=== PATIENT | male | born 1965 | race Two or more races ===

== ENCOUNTER 2022-03-19 08:59 | Outpatient (REF) | payer OTHER, SELFPAY ==
[2022-03-19 10:12] LABS: Estimated Average Glucose 255 mg/dL; Hemoglobin A1c % 10.5 %
== END 2022-03-19 09:00 | disposition home or self-care (01) ==
LOC: HO.LAB 08:59
PROVIDERS: PCP Internal Medicine; Visit Provider Surgery
DX: E11.9 Type 2 diabetes mellitus without complications (principal)
CPT/HCPCS: 36415; 83036

== ENCOUNTER 2022-05-15 07:37 | Outpatient (REF) | payer OTHER, SELFPAY ==
[2022-05-15 09:04] LABS: Alanine Aminotransferase 24 U/L (0-40); Albumin Level 4.5 g/dL (3.5-5.0); Alkaline Phosphatase 107 U/L (39-117); Anion Gap 16 (12-20); Aspartate Amino Transferase 18 U/L (5-37); Bilirubin Direct < 0.2 mg/dL (0.0-0.5); Bilirubin Total 0.4 mg/dL (0.0-1.0); Blood Urea Nitrogen 20 mg/dL (9-16); Calcium 9.4 mg/dL (8.4-10.2); Carbon Dioxide 26 mmol/L (22-29); Chloride 100 mmol/L (96-108); Cholesterol 185 mg/dL; Estimated Glomerular Filt Rate > 60; Glucose Random 238 mg/dL (60-115); HDL Cholesterol 32 mg/dL; LDL Cholesterol Calculated 128 mg/dl; Sodium 137 mmol/L (135-145); Total Protein 7.3 g/dL (6.5-8.0); Triglycerides 127 mg/dL
[2022-05-15 09:04] LABS: Creatinine Urine 88.47 mg/dL; Microalbum/Creatinine Ratio Ur 85.9 ug/mg cr
[2022-05-15 09:24] LABS: Thyroid Stimulating Hormone 2.64 uIU/mL (0.32-4.0)
[2022-05-23 16:23] LABS: Testosterone, Free 77.7 pg/mL (35.0-155.0); Testosterone, Total 353 ng/dL (250-1100)
== END 2022-05-15 07:38 | disposition home or self-care (01) ==
LOC: HO.LAB 07:37
PROVIDERS: PCP Internal Medicine; Visit Provider Internal Medicine
DX: Z12.5 Encounter for screening for malignant neoplasm of prostate (principal); I10 Essential (primary) hypertension; E11.9 Type 2 diabetes mellitus without complications; N52.9 Male erectile dysfunction, unspecified
CPT/HCPCS: 36415; 80048; 80061; 80076; 82043; 84153; 84402; 84403; 84443

== ENCOUNTER 2023-01-29 16:28 | Emergency (ER) | payer OTHER, SELFPAY ==
--- NOTE | 2023-01-29 | ECG_ITS ---
Test Reason : CHEST PAIN Blood Pressure : / mmHG Vent. Rate : 083 BPM Atrial Rate : 083 BPM P-R Int : 172 ms QRS Dur : 082 ms QT Int : 324 ms P-R-T Axes : 027 009 003 degrees QTc Int : 380 ms Normal sinus rhythm Minimal voltage criteria for LVH, may be normal variant ( R in aVL ) Abnormal ECG When compared with ECG of 11-NOV-2016 21:24, Premature ventricular complexes are no longer Present Referred By: Generic ED Physician Electronically Signed By:KILEY SIMON MD
[2023-01-29 16:52] VITALS: BP 176/100; PULSE 92; RESP 16; TEMP 37.2; O2SAT 98; BMI 27.2
--- NOTE | 2023-01-29 16:52 | ED.CHESTPAIN ---
HPI - Chest Pain General Chief Complaint: Arrhythmia/Palpitations Stated Complaint: chest pain Time Seen by Provider: 01/29/23 17:06 Source: patient Mode of arrival: ambulatory Limitations: no limitations History of Present Illness HPI narrative: Patient history of hypertension diabetes TIA is on aspirin no known coronary artery disease comes here for fluttering feeling the heart since yesterday 20:00 lasting only for few seconds no shortness of breath no dizziness syncope episode no chest pain patient drink lot of coffee and working too many hours has poor sleep denies any stress or anxiety Related Data Allergies Allergy/AdvReac Type Severity Reaction Status Date / Time No Known Allergies Allergy Unverified 12/20/19 18:09 [No Known Allergies*] Review of Systems Review of Systems: Yes all other systems are reviewed and are negative [facility] Social History Social History Smoked in Last 30 Days: No Advance Directives: No Advance Directives Information Provided: Yes Physical Exam Vital Signs: Vital Signs: Last Vital Signs Temp 99 F 01/29/23 19:29 Pulse 82 01/29/23 19:29 Resp 16 01/29/23 19:29 BP 142/90 H 01/29/23 19:29 Pulse Ox 98 01/29/23 19:29 O2 Del Method Room Air 01/29/23 19:29 BMI result Body Mass Index 27.2 Appearance: Alert. Oriented X3. No acute distress. Eyes: PERRLA, No Nystagmus ENT: Pharynx normal. Oral Mucosa moist Neck: Normal inspection. Neck supple. CVS: Normal heart rate and rhythm. Pulses normal. Respiratory: No respiratory distress. Equal air entry bilateral, no wheezing/rales/rhonchi Abdomen: Soft and nontender. Bowel sounds are present, no mass palpable, no CVA tenderness Skin: Skin warm and dry. Normal skin color. Normal skin turgor. Extremities: No lower extremity edema. No calf tenderness Neuro: Oriented X 3. No motor deficit. No sensory deficit.No cerebellar signs , cranial nerves II-XII intact Course Course Course Narrative: This is an RME: Additional HPI, ROS, PE not included below will be deferred to primary provider. Patient is a 57-year-old male who presents emergency department for evaluation of left/mid anterior chest discomfort described as ?zinging sensation? with sudden onset yesterday evening at approximately 20:00 lasting a few seconds before self-resolving occurring every 5-10 minutes since then. Denies headache, dizziness, lightheadedness, neck pain, shortness of difficulty breathing, nausea, vomiting, abdominal pain, numbness or tingling of extremities. Plan: Labs, EKG, Medical Decision Making Medical Decision Making [facility] Narrative: Patient with history of increased caffeine intake with episodes of palpitations lasting only few seconds during stay in the ER no event was noticed likely patient has premature atrial complex/SVT advised to decrease caffeine intake Differential Diagnosis Differential Diagnoses: The differential diagnosis associated with the presentation includes PAC/PVC/atrial fibrillation/atrial flutter/SVT Lab Data [facility] Lab Attestation statement: I reviewed the patient's lab results. 01/29/23 17:05 01/29/23 17:05 Labs: Lab Results 01/29/23 01/29/23 Range/Units 17:05 17:07 WBC 9.3 (4.8-10.8) X10*3/uL RBC 5.41 (4.60-5.80) X10*6/uL Hgb 15.1 (14.0-18.0) g/dl Hct 45.2 (42.0-52.0) % MCV 83.5 (80.0-98.0) fL MCH 27.9 (27.0-33.0) pg MCHC 33.4 (31.0-36.0) g/dl RDW 13.3 (11.0-16.0) % Plt Count 244 (160-400) X10*3/uL MPV 10.8 (9.4-12.4) fL Immature Gran % (Auto) 1.0 H (0.0-0.4) % Neut % (Auto) 66.0 (45-73) % Lymph % (Auto) 24.2 (20-40) % [place] % (Auto) 6.2 (2-11) % Eos % (Auto) 2.0 (0-4) % Baso % (Auto) 0.6 (0-2) % Lymph # (Auto) 2.3 (1.2-4.9) X10*3/uL [place] # (Auto) 0.6 (0.1-1.2) X10*3/uL Eos # (Auto) 0.2 (0.0-0.4) X10*3/uL Baso # (Auto) 0.1 (0.0-0.2) X10*3/uL Abs Immat Gran (auto) 0.09 H (0.00-0.03) X10*3/uL Absolute Neuts (auto) 6.1 (2.0-8.3) x10*3/uL Absolute Nucleated RBC 0.000 (0.0-0.012) X10*3/uL Nucleated RBC % (auto) 0.0 (0.0-0.2) /100WBC PT 11.8 (11.1-13.3) SEC INR 1.0 (0.9-1.1) Sodium 139 (135-145) mmol/L Potassium 4.1 (3.3-5.1) mmol/L Chloride 102 (96-108) mmol/L Carbon Dioxide 26 (22-29) mmol/L Anion Gap 15 (12-20) BUN 19 H (9-16) mg/dL Creatinine 1.29 (0.5-1.4) mg/dL Estim Creat Clear Calc 59.7 Estimated GFR 58 Random Glucose 199 H (60-115) mg/dL Calcium 9.6 (8.4-10.2) mg/dL Total Bilirubin 0.4 (0.0-1.0) mg/dL AST 19 (5-37) U/L ALT 19 (0-40) U/L Alkaline Phosphatase 94 (39-117) U/L Troponin I High Sens 11.7 (<3.5-35.0) ng/L Total Protein 7.5 (6.5-8.0) g/dL Albumin 4.4 (3.5-5.0) g/dL COVID-19 (AIXA) Negative (Negative) COVID-19 Clin Com See Note Influenza Type A (ELLEN) Negative (Negative) Influenza Type B (ELLEN) Negative (Negative) Influenza A & B Note See Note Discharge Plan Discharge Clinical Impression: Palpitations Patient Disposition: Home, Self-Care Instructions: Heart Palpitations (ED) Additional Instructions: Decrease caffeine intake Report to the ER if long episodes of palpitation with dizziness/passing out or chest pain Follow with PCP Interventions: ED Discharge Assessment Last Done: 01/29/23 19:57 Discharge Date/Time: 01/29/23 19:57
[2023-01-29 17:12] LABS: MANUAL DIFF FLAG NO
[2023-01-29 17:13] LABS: Basophils Absolute Auto 0.1 X10*3/uL (0.0-0.2); Basophils Percent Auto 0.6 % (0-2); Eosinophils Absolute Auto 0.2 X10*3/uL (0.0-0.4); Hematocrit 45.2 % (42.0-52.0); Hemoglobin 15.1 g/dl (14.0-18.0); Imm Gran Abs Auto 0.09 X10*3/uL (0.00-0.03); Lymphocytes Absolute Auto 2.3 X10*3/uL (1.2-4.9); Lymphocytes Percent Auto 24.2 % (20-40); Mean Corpuscular HGB Conc 33.4 g/dl (31.0-36.0); Mean Corpuscular Hemoglobin 27.9 pg (27.0-33.0); Mean Corpuscular Volume 83.5 fL (80.0-98.0); Mean Platelet Volume 10.8 fL (9.4-12.4); Monocytes Absolute Auto 0.6 X10*3/uL (0.1-1.2); Monocytes Percent Auto 6.2 % (2-11); Neutrophils Absolute Auto 6.1 x10*3/uL (2.0-8.3); Platelet Count 244 X10*3/uL (160-400); Red Blood Count 5.41 X10*6/uL (4.60-5.80); Red Cell Distribution Width 13.3 % (11.0-16.0); White Blood Count 9.3 X10*3/uL (4.8-10.8)
[2023-01-29 17:20] VITALS: BP 162/99; PULSE 95; RESP 21; O2SAT 98
[2023-01-29 17:26] LABS: Alanine Aminotransferase 19 U/L (0-40); Albumin Level 4.4 g/dL (3.5-5.0); Alkaline Phosphatase 94 U/L (39-117); Anion Gap 15 (12-20); Aspartate Amino Transferase 19 U/L (5-37); Bilirubin Total 0.4 mg/dL (0.0-1.0); Blood Urea Nitrogen 19 mg/dL (9-16); Calcium 9.6 mg/dL (8.4-10.2); Carbon Dioxide 26 mmol/L (22-29); Chloride 102 mmol/L (96-108); Creatinine Clr Calc Pharmacy 59.7; Estimated Glomerular Filt Rate 58; Glucose Random 199 mg/dL (60-115); Potassium 4.1 mmol/L (3.3-5.1); Sodium 139 mmol/L (135-145); Total Protein 7.5 g/dL (6.5-8.0)
[2023-01-29 17:33] LABS: Troponin-I High Sensitivity 11.7 ng/L (<3.5-35.0)
[2023-01-29 17:35] LABS: Prothrombin Time 11.8 SEC (11.1-13.3)
[2023-01-29 17:36] LABS: COVID-19 Test Negative (Negative); IDNOW Serial# 08D9AD1C; IDNOW Serial# BCCEAD1C; Influenza A Negative (Negative)
[2023-01-29 17:37] LABS: Influenza B2 Negative (Negative)
[2023-01-29 19:29] VITALS: BP 142/90; PULSE 82; RESP 16; TEMP 37.2; O2SAT 98
--- NOTE | 2023-01-29 19:32 | PC.NURSE ---
I assumed care of the pt at 1900. Pt resting in bed at this time with cardiac cath tech applied. Pt is A&Ox4, GCS 15, stating he feels better and wants to go home. Pt denies pain, SOB, or other discomfort. Pt waiting dispo at this time.
== END 2023-01-29 19:57 | disposition home or self-care (01) ==
PROVIDERS: Nurse Practitioner Family; Emergency Provider Internal Medicine; PCP Internal Medicine
DX: R00.2 Palpitations (principal); Z11.52 Encounter for screening for COVID-19; E11.9 Type 2 diabetes mellitus without complications; I10 Essential (primary) hypertension; Z86.73 Personal history of transient ischemic attack (TIA), and cerebral infarction without residual deficits
CPT/HCPCS: 80053; 84484; 85025; 85610; 87502; 87635; 93005; 99283; 99285

== ENCOUNTER 2024-09-10 08:13 | Outpatient (REF) | payer OTHER, SELFPAY ==
[2024-09-10 09:44] LABS: Estimated Average Glucose 200 mg/dL; Hemoglobin A1c % 8.6 % (<6.0)
[2024-09-10 10:05] LABS: Anion Gap 9 (12-20); Blood Urea Nitrogen 14 mg/dL (9-16); Calcium 9.3 mg/dL (8.4-10.2); Carbon Dioxide 31 mmol/L (22-29); Chloride 102 mmol/L (96-108); Cholesterol 112 mg/dL (<200); Estimated Glomerular Filt Rate > 60; Glucose Random 190 mg/dL (60-115); HDL Cholesterol 34 mg/dL (>40); LDL Cholesterol Calculated 66 mg/dL (<100); Potassium 4.8 mmol/L (3.3-5.1); Sodium 137 mmol/L (135-145); Triglycerides 64 mg/dL (<150)
== END 2024-09-10 08:14 | disposition home or self-care (01) ==
LOC: HO.LAB 08:13
PROVIDERS: PCP Internal Medicine; Visit Provider Internal Medicine
DX: E11.9 Type 2 diabetes mellitus without complications (principal); E78.2 Mixed hyperlipidemia; I10 Essential (primary) hypertension
CPT/HCPCS: 36415; 80048; 80061; 83036

== ENCOUNTER 2024-12-18 10:35 | Outpatient (REF) | payer OTHER, SELFPAY ==
--- NOTE | ~2024-12-18 | XR_ITS ---
Exam: XR HAND 3 VIEWS BILATERAL, bilateral hand x-rays TECHNIQUE: AP, lateral, and oblique views upper extremity, bilateral hands INDICATION: hand pain COMPARISON: None available. FINDINGS: RIGHT HAND: Small marginal osteophytes are present involving the DIP joint of the third digit. There are 2 small nonspecific ossifications present on the dorsal and radial side IP joint of the thumb. Small marginal osteophyte is noted at the base of first metacarpal. There is faint linear chondrocalcinosis along the lunotriquetral joint There is mild ulnar minus variance. There is normal bone mineral density. LEFT HAND: Narrowing and small marginal osteophytes are present at the first carpal metacarpal joint and IP joint of the thumb. Joint spaces are preserved. No erosions are identified. Bone mineral density is within normal limits. XR/XR Hand Bilat min 3v IMPRESSION: Right hand: Mild osteoarthritis and chondrocalcinosis. Left hand: Mild to moderate osteoarthritis involving the first CMC and IP joints. Electronically signed by: Sherif Luz MD 12/18/2024 12:30 PM EDT
--- OUTSIDE RECORDS SUMMARY | 2024-12-18 10:00 | XMS_ITS | Encounter Summary ---
Author Organization [employer] Address [address] [facility] 7[address] [place] [address] Care Team Providers Care Top Carrier Name Role Phone Tam Amaya MD Primary Care Provide r Melodie Dupont PharmD Unavailable [phone] Encounter Details Date Type Department Care Team ([facility] st Contact Info) Description 12/18/2024 10:00 AM EDT Office Visit [facility] [address], [place] [phone] Tam Amaya MD [address] [place], [place] [phone] Type 2 diabetes mellitus without complication, without long-term current use of insulin ([facility]) (Primary Dx); Benign hypertension; Mixed hyperlipidemia; Precordial pain; Preventative health care; Bilateral hand pain Social History Tobacco Use Types Packs/Day Years Used Date Smoking Tobacco: Never Passive Smoke Exposure: Never Smokeless Tobacco: Never Alcohol Use Standard Drinks/Week Comments Not Currently 0 (1 standard drink = 0.6 oz pur e alcohol) Depression Answer Date Recorded Patient Health Questionnaire-9 Score 0 12/18/2024 Patient Health Questionnaire-9 Score 0 12/18/2024 Last PHQ-9: Questionnaire Data Not on file 0 12/18/2024 Housing Stability Answer Date Recorded What is your housing situation today? I have nelson mariscal 12/18/[address] you li ve. Do you have problems with any of the following? None of the above 12/18/2024 Food Insecurity Answer Date Recorded Within the past 12 months, y ou worried that your food would run out before you got money to buy more: Never True 12/18/2024 Within the past 12 months,th e food you bought just didn't last and you didn't have enough money to get more: Never True Transportation Answer Date Recorded In the past 12 months, has l ack of transportation kept you from medical appts, meetings, work or from getting things needed for daily living? No 12/18/2024 Utilities Answer Date Recorded In the past 12 months, has t he [employer] gas, oil or water [employer] threatened to shut off services in your home? No 01/27/2023 Depression Answer Date Recorded Patient Health Questionnaire-2 Score 0 12/18/2024 Internet Access Answer Date Recorded Internet Access Q1 Yes 12/18/2024 Internet Access Q2 Not on file 12/18/2024 Sex and Gender Information Value Date Recorded Sex Assigned at Male 02/01/2022 10:21 AM EDT Legal Sex Male 10:21 AM EDT Gender Identity Male 02/01/2022 10:21 AM EDT Sexual Orientation Straight 02/01/2022 10 :21 AM EDT documented as of this encounter Last Filed Vital Signs Vital Sign Reading Time Taken Comments Blood Pressure 138/84 12/18/2024 10:20 AM EDT Pulse 72 12/18/2024 9:56 AM EDT Temperature 36.9 C (98.4 F) 12/18/2024 9:56 AM EDT Respiratory Rate 17 12/18/2024 9:56 AM EDT Oxygen Saturation - - Inhaled Oxygen Concentration - - Weight 75.9 kg (167 lb 6 oz) 12/18/2024 9:56 AM EDT Height 170.2 cm (5' 7 ) 12/18/2024 9:56 AM EDT Body Mass Index 26.21 12/18/2024 9:56 AM EDT documented in this encounter Functional Status * Over the past 2 weeks, how often have you been bothered by any of the following problems? Question Answer Date of Assessment Author Patient Health Questionnaire-2 Score 0 12/03 10:01 AM EDT Fer Diaz MA * Little interest or pleasure in doing things Answer Date of Assessment Author Not at all 12/18/2024 10:01 AM EDT Charlotte Diaz MA * Feeling down, depressed, or hopeless Answer Date of Assessment Author Not at all 12/18/2024 10:01 AM EDT Charlotte Diaz MA * Trouble falling or staying asleep, or sleeping too much Answer Date of Assessment Author Not at all 12/18/2024 10:01 AM EDT Charlotte Diaz MA * Feeling tired or having little energy Answer Date of Assessment Author Not at all 12/18/2024 10:01 AM EDT Charlotte Diaz MA * Poor appetite or overeating Answer Date of Assessment Author Not at all 12/18/2024 10:01 AM EDT Charlotte Diaz MA * Feeling bad about yourself - or that you are a failure or have let yourself or your family down Answer Date of Assessment Author Not at all 12/18/2024 10:01 AM EDT Charlotte Diaz MA * Trouble concentrating on things, such as reading the newspaper or watching television Answer Date of Assessment Author Not at all 12/18/2024 10:01 AM EDT Charlotte Diaz MA * Moving or speaking so slowly that other people could have noticed? Or the opposite - being so fidgety or restless that you have been moving around a lot more than usual. Answer Date of Assessment Author Not at all 12/18/2024 10:01 AM EDT Charlotte Diaz MA * Thoughts that you would be better off or hurting yourself in some way Answer Date of Assessment Author Not at all 12/18/2024 10:01 AM EDT Charlotte Diaz MA * Patient Health Questionnaire-9 Score Answer Date of Assessment Author 0 12/18/2024 10:01 AM EDT Charlotte Diaz MA * Over the last 2 weeks, how often have you been bothered by any of the following problems? Question Answer Date of Assessment Author Feeling nervous, anxious, or on edge 0 12/03 10:01 AM EDT Fer Diaz MA Not being able to stop or co ntrol worrying 0 12/18/2024 10:01 AM [place] Fer Diaz M A Worrying too much about diff erent things 0 12/18/2024 10:01 AM EDT Fer Diaz M A Trouble relaxing 0 12/18/2024 10:01 AM EDT Fer Diaz MA Being so restless that it is hard to sit still 0 12/18/2024 10:01 AM EDT Fer Diaz M A Becoming easily annoyed or irritable 0 12/03 10:01 AM EDT Fer Diaz MA Feeling afraid as if somethi ng awful might happen 0 12/18/2024 10:01 AM EDT Fer Diaz M A AXEL-7 Total Score 0 12/18/2024 10:01 AM EDT Fer Diaz MA documented as of this encounter Progress Notes * Tam Jessica MD - 12/18/2024 10:00 AM EDT SUBJECTIVE Wayne Clements is a 59 y.o. male who presents for No chief complaint on file.. Wayne Clements, 59 years Diabetes Mellitus - History of diabetes with poor glycemic control - Hemoglobin A1c reported as 8.1 at most recent check, no significant improvement since last visit - Reports increased thirst and increased urination since starting new medication combination a few months ago - Currently injecting Trulicity 3 mg weekly - No reported adverse effects from current diabetes medications Diabetes He presents for his follow-up diabetic visit. He has type 2 diabetes mellitus. Pertinent negatives for hypoglycemia include no headaches. Pertinent negatives for diabetes include no chest pain. Review of Systems Constitutional: Negative for fever. HENT: Negative for sore throat. Respiratory: Negative for cough and shortness of breath. Cardiovascular: Negative for chest pain. Gastrointestinal: Negative for abdominal pain. Neurological: Negative for headaches. Allergies[1] OBJECTIVE Vitals: 12/18/24 0956 12/18/24 1020 BP: (!) 140/94 138/84 BP Location: Left arm Patient Position: Sitting BP Cuff Size: Adult Pulse: 72 Resp: 17 Temp: 98.4 ??F (36.9 ??C) TempSrc: Oral Weight: 167 lb 6 oz (75.9 kg) Height: 5' 7 (1.702 m) Physical Exam Vitals reviewed. Constitutional: Appearance: Normal appearance. HENT: Head: Normocephalic and atraumatic. Right Ear: External ear normal. Left Ear: External ear normal. Nose: Nose normal. Mouth/Throat: Mouth: Mucous membranes are moist. Eyes: Conjunctiva/sclera: Conjunctivae normal. Cardiovascular: Rate and Rhythm: Normal rate and regular rhythm. Pulmonary: Effort: Pulmonary effort is normal. Breath sounds: Normal breath sounds. Skin: General: Skin is warm. Neurological: Mental Status: He is alert. Mental status is at baseline. Assessment/Plan Problem List Items Addressed This Visit Type 2 diabetes mellitus without complication, without long-term current use of insulin ([facility]) -Primary Pt here for a f/u He is in a regimen of: xigduo XR 2.08/999 and Trulicity 3 mcg once a week, Pt denies any Hx of thyroid cancer , or family hx of it, no hx of Pancreatitis either Hgb A1c 12/18/2024 was 8.5 from 7.2 Eye exam done on: 12/27/[address] Cronin (postal clerk). No Pt was referred to our Eye care program in the past Microalbumin checked on: 05/15/2022 was: 76 Pt is on an RYAN inhibitor. Will repeat Foot check risk of zero Previously pt was referred to our diabetes RN, Pt reports compliance with Asa 81 mg po daily Plan: Increase Trulicity to 4.5 mg weekly Follow up in 3 months Pt advised to: adhere to diabetic diet check your blood sugars regularly check your feet on a daily basis. Relevant Medications Dulaglutide (Trulicity) 4.5 MG/0.5ML solution auto-injector Other Relevant Orders POCT Glucose (Completed) POCT Hgb A1c (Completed) Albumin, Random Urine W/Creatinine PSA, Screen Benign hypertension Patient here for a f/u with Hypertension currently controlled on a regimen of: Norvasc 10 mg po and Lisinopril 40 mg po daily. Hctz Was Dced due to persistent hyponatremia Most recent electrolytes, Bun and Creatinine done on: Lab Results Component Value Date NA 137 09/10/2024 NA 139 01/29/2023 K 4.8 09/10/2024 K 4.1 01/29/2023 CL 102 09/10/2024 CL 102 01/29/2023 BUN 14 09/10/2024 BUN 19 (H) 01/29/2023 CREATININE 0.82 09/10/2024 CREATININE 1.29 01/29/[address] done 04/11/2014 was Normal patient advised to adhere to a low sodium diet, encouraged about medication compliance, counseled about weight loss. 4 months f/u Mixed hyperlipidemia Patient with elevated lipids. Most recent lipid profile Lab Results Component Value Date TRIG 64 09/10/2024 TRIG 127 05/15/2022 CHOL 112 09/10/2024 CHOL 185 05/15/2022 LDLCHOLCAL 66 09/10/2024 LDLCHOLCAL 128 05/15/2022 HDL 34 (L) 09/10/2024 HDL 32 05/15/2022 On Crestor 10 mg po qhs advised to try to adhere to a low cholesterol diet, counseled and educated about diet and exercise,Patient encouraged to come up with a personal goal for weight loss. Relevant Medications Dulaglutide (Trulicity) 4.5 MG/0.5ML solution auto-injector Precordial pain Pt seen by Cardiology for outpatient stress test and Holter monitor Seen at [facility] cardiology they recommended a stress echo. Stress ECHO 08/12/2023: Stress interpretation: Abnormal exercise tolerance test Normal exercise physiology ECG changes suggestive of ischemia ECHO findings: Foreshortened apical views post stress limiting assessment of the true LV apex. LVSF appropriately augmented following stress. There are no definite regional wall motion abnormalities seen following stress on limited views Will ask RN to contact Cardiology office for follow up Preventative health care Colonoscopy: 06/10/2018 PSA 05/15/2022 Normal, will repeat Relevant Orders PSA, Screen Bilateral hand pain Plan Plain films both hands Relevant Orders XR Hand 3+ Views Right This note was drafted using Ambient (AI) technology. The patient/patient's guardian has been informed and has consented to the use of this technology: Yes Future Appointments Date Time Provider Department Center 01/21/2025 9:30 AM Melodie Dupont PharmD MEDICINE [facility] 03/14/2025 11:30 AM Tam Jessica MD MEDICINE [facility] [1] No Known Allergies documented in this encounter Miscellaneous Notes * Assessment & Plan Note - Tam Jessica MD - 12/18/2024 10:22 AM EDT Associated Problem(s): Bilateral hand pain Plan Plain films both hands * Assessment & Plan Note - Tam Jessica MD - 12/18/2024 10:12 AM EDT Associated Problem(s): Preventative health care Colonoscopy: 06/10/2018 PSA 05/15/2022 Normal, will repeat * Assessment & Plan Note - Tam Jessica MD - 12/18/2024 10:11 AM EDT Associated Problem(s): Precordial pain Pt seen by Cardiology for outpatient stress test and Holter monitor Seen at [facility] cardiology they recommended a stress echo. Stress ECHO 08/12/2023: Stress interpretation: Abnormal exercise tolerance test Normal exercise physiology ECG changes suggestive of ischemia ECHO findings: Foreshortened apical views post stress limiting assessment of the true LV apex. LVSF appropriately augmented following stress. There are no definite regional wall motion abnormalities seen following stress on limited views Will ask RN to contact Cardiology office for follow up * Assessment & Plan Note - Tam Jessica MD - 12/18/2024 10:08 AM EDT Associated Problem(s): Mixed hyperlipidemia Patient with elevated lipids. Most recent lipid profile Lab Results Component Value Date TRIG 64 09/10/2024 TRIG 127 05/15/2022 CHOL 112 09/10/2024 CHOL 185 05/15/2022 LDLCHOLCAL 66 09/10/2024 LDLCHOLCAL 128 05/15/2022 HDL 34 (L) 09/10/2024 HDL 32 05/15/2022 On Crestor 10 mg po qhs advised to try to adhere to a low cholesterol diet, counseled and educated about diet and exercise,Patient encouraged to come up with a personal goal for weight loss. * Assessment & Plan Note - Tam Jessica MD - 12/18/2024 10:08 AM EDT Associated Problem(s): Benign hypertension Patient here for a f/u with Hypertension currently controlled on a regimen of: Norvasc 10 mg po and Lisinopril 40 mg po daily. Hctz Was Dced due to persistent hyponatremia Most recent electrolytes, Bun and Creatinine done on: Lab Results Component Value Date NA 137 09/10/2024 NA 139 01/29/2023 K 4.8 09/10/2024 K 4.1 01/29/2023 CL 102 09/10/2024 CL 102 01/29/2023 BUN 14 09/10/2024 BUN 19 (H) 01/29/2023 CREATININE 0.82 09/10/2024 CREATININE 1.29 01/29/[address] done 04/11/2014 was Normal patient advised to adhere to a low sodium diet, encouraged about medication compliance, counseled about weight loss. 4 months f/u * Assessment & Plan Note - Tam Jessica MD - 12/18/2024 10:06 AM EDT Associated Problem(s): Type 2 diabetes mellitus without complication, without long-term current useof insulin (CMS/HCC) Pt here for a f/u He is in a regimen of: xigduo XR 2.08/999 and Trulicity 3 mcg once a week, Pt denies any Hx of thyroid cancer , or family hx of it, no hx of Pancreatitis either Hgb A1c 12/18/2024 was 8.5 from 7.2 Eye exam done on: 12/27/[address] Cronin (postal clerk). No Pt was referred to our Eye care program in the past Microalbumin checked on: 05/15/2022 was: 76 Pt is on an RYAN inhibitor. Will repeat Foot check risk of zero Previously pt was referred to our diabetes RN, Pt reports compliance with Asa 81 mg po daily Plan: Increase Trulicity to 4.5 mg weekly Follow up in 3 months Pt advised to: adhere to diabetic diet check your blood sugars regularly check your feet on a daily basis. documented in this encounter Plan of Treatment Upcoming Encounters Date Type Department Care Team (Late st Contact Info) Description 01/08/2025 11:00 AM EDT Office Visit [facility] [address] [place] [phone] Gladys Horan [address] [place], [place] [phone] 01/21/2025 9:30 AM EDT Medication Management [facility] [address] [place] [address] [phone] Melodie Dupont PharmD [address] [place] [phone] 03/14/2025 11:30 AM EST Office Visit [address] [phone] Tam Amaya MD [address] [place] [phone] Scheduled Orders Name Type Priority Associated Diagnoses Orde r Schedule Albumin, Random Urine W/Creatinine Lab Routine Type 2 diabetes mellitus without complication, without long-term current use of insulin ([facility]) Ordered: 12/18/2024 PSA, Screen Lab Routine Type 2 diabetes mellitus without complication, without long-term current use of insulin ([facility]) Preventative health care Ordered: 12/18/2024 XR Hand 3+ Views Right Imaging Routine Bilateral hand pain Ordered: 12/18/2024 documented as of this encounter Goals Goal Patient Goal Type Associated Problems Recent Progress Patient-Stated? Author Blood Pressure < 140/90 Blood Pressure Benign hypertension 138/84(2024 10:20 AM EDT) No Elizabeth Magaña PharmD Hemoglobin A1c < 7.0 Result Component Type 2 diabetes mellitus without complication, without long-term current use of insulin 8.1( 10:00 AM EDT) No Elizabeth Magaña PharmD LDL Calc < 100 Result Component Mixed hyperlipidemia No Elizabeth Magaña PharmD documented as of this encounter Procedures Procedure Name Priority Date/Time Associated Diagnosis Comments XR HAND 3+ VIEWS BILATERAL Routine 12/18/2024 12:16 PM EDT POCT GLYCATED HEMOGLOBIN, TOTAL Routine 12/18/2024 10:00 AM EDT Type 2 diabetes mellitus without complication, without long-term current use of insulin ([facility]) POCT GLUCOSE Routine 12/18/2024 9:58 AM EDT Type 2 diabetes mellitus without complication, without long-term current use of insulin ([facility]) documented in this encounter Results * XR Hand 3+Views Bilateral (12/18/2024 12:16 PM EDT) Anatomical Region Laterality Modality Upper Extremities, Hand Bilateral Radiogra phic Imaging 12/18/2024 12:1 6 PM EDT Narrative 12/18/2024 12:33 PM EDT [address] [address] XRay Report Signed Patient: Wayne Clements MR#: [id number] [birth year] : 1965 Acct:[id number] Age/Sex: 59 / M ADM Date: 12/18/24 Loc: [facility] Attending Dr: Tam Soto MD Ordering Physician: Tam Soto MD Date of Service: 12/18/24 Procedure(s): XR Hand Bilat min 3v Accession Number(s): [id number] cc: Tam Soto MD Reason for Exam: hand pain Exam: XR HAND 3 VIEWS BILATERAL, bilateral hand x-rays TECHNIQUE: AP, lateral, and oblique views upper extremity, bilateral hands INDICATION: hand pain COMPARISON: None available. FINDINGS: RIGHT HAND: Small marginal osteophytes are present involving the DIP joint of the third digit. There are 2 small nonspecific ossifications present on the dorsal and radial side IP joint of the thumb. Small marginal osteophyte is noted at the base of first metacarpal. There is faint linear chondrocalcinosis along the lunotriquetral joint There is mild ulnar minus variance. There is normal bone mineral density. LEFT HAND: Narrowing and small marginal osteophytes are present at the first carpal metacarpal joint and IP joint of the thumb. Joint spaces are preserved. No erosions are identified. Bone mineral density is within normal limits. XR/XR Hand Bilat min 3v IMPRESSION: Right hand: Mild osteoarthritis and chondrocalcinosis. Left hand: Mild to moderate osteoarthritis involving the first CMC and IP joints. Electronically signed by: Sherif Luz MD 12/18/2024 12:30 PM EDT Dictated By: Sherif Luz MD Signed By: <Electronically signed by Sheirf Luz MD in [place]> 12/18/24 1230 DD/ 1216 TD/TT: 12/18/24 1219 Musical Engineer: Procedure Note Donotuseinterpreter, Image - 12/18/[address] [address] XRay Report Signed Patient: Meg Clements#: [id number] 08 : 1965Acct:[id number] Age/Sex: 59 / MADM Date: 12/18/24 Loc: HO.[facility]CL Attending Dr: Tam Soto MD Ordering Physician: Tam Soto MD Date of Service: 12/18/24 Procedure(s): XR Hand Bilat min 3v Accession Number(s): [id number] cc: Tam Soto MD Reason for Exam: hand pain Exam: XR HAND 3 VIEWS BILATERAL, bilateral hand x-rays TECHNIQUE: AP, lateral, and oblique views upper extremity, bilateral hands INDICATION: hand pain COMPARISON: None available. FINDINGS: RIGHT HAND: Small marginal osteophytes are present involving the DIP joint of the third digit. There are 2 small nonspecific ossifications present on the dorsal and radial side IP joint of the thumb. Small marginal osteophyte is noted at the base of first metacarpal. There is faint linear chondrocalcinosis along the lunotriquetral joint There is mild ulnar minus variance. There is normal bone mineral density. LEFT HAND: Narrowing and small marginal osteophytes are present at the first carpal metacarpal joint and IP joint of the thumb. Joint spaces are preserved. No erosions are identified. Bone mineral density is within normal limits. XR/XR Hand Bilat min 3v IMPRESSION: Right hand: Mild osteoarthritis and chondrocalcinosis. Left hand: Mild to moderate osteoarthritis involving the first CMC and IP joints. Electronically signed by: Sherif Luz MD 12/18/2024 12:30 PM EDT Dictated By: Sherif Luz MD Signed By: <Electronically signed by Sherif Luz MD in [place]> 12/18/24 1230 DD/ 1216 TD/TT: 12/18/24 1219 Musical Engineer: Tam Jessica MD IMG XR PROCEDURES Alan angela Result - Final * (ABNORMAL) POCT Hgb A1c (12/18/2024 10:00 AM EDT) Hemoglobin A1C 8.1(A) 4.0 - 5.7 % QC Media Lot # [id number] Lot# Expiration Date 990,471 Blood 12/18/2024 10:0 0 AM EDT Tam Jessica MD POINT OF CARE TEST EN TER/EDIT ORDERABLES Final Result * POCT Glucose (12/18/2024 9:58 AM EDT) Glucose Blood, POC 168 60 - 200 mg/dL Comment:Random QC Media Lot # [id number] Lot# Expiration Date 111,567 Blood Capillary blood specimen / Unknown 12/18/2024 9:58 AM EDT Tam Jessica MD POINT OF CARE TEST EN TER/EDIT ORDERABLES Final Result documented in this encounter Visit Diagnoses Diagnosis Type 2 diabetes mellitus without complication, without long-term current use of insulin ([facility])- Primary Benign hypertension Essential hypertension, benign Mixed hyperlipidemia Precordial pain Preventative health care Routine general medical examination at a health care facility Bilateral hand pain documented in this encounter Additional Health Concerns Assessment Noted Time PHQ-9 Depression Total Score: 0 12/19/19 25 10:01 AM EDT documented as of this encounter Care Teams Top Carrier Relationship Specialty Start Date End Date Tam Amaya MD [address] [place] [address] PCP - General Internal Medicine 02/01/14 Melodie Dupont PharmD [address] [place] [address] Pharmacist Pharmacy 09/27/24 documented as of this encounter
--- OUTSIDE RECORDS SUMMARY | 2024-12-18 14:02 | XMS_ITS | Encounter Summary ---
Author Organization [employer] Address [address] [place] [address] [address] [place] [address] Care Team Providers Care [employer]ision Aircraft Structure Assembler Name Role Phone Tam Amaya MD Primary Care Provide r Melodie Dupont PharmD Unavailable [phone] Reason for Visit * Reason Onset Date Comments Med Refill 10/18/2022 Encounter Details Date Type Department Care Team (Late Contact Info) Description 10/18/2022 Refill [facility] [address] [place], [place] [phone] Tam Amaya MD [address] [place], [place] [phone] Type 2 diabetes mellitus without complication, without long-term current use of insulin ([facility]) Social History Tobacco Use Types Packs/Day Years Used Date Smoking Tobacco: Never Passive Smoke Exposure: Never Smokeless Tobacco: Never Alcohol Use Standard Drinks/Week Comments Not Currently 0 (1 standard drink = 0.6 oz pur e alcohol) Depression Answer Date Recorded Patient Health Questionnaire-9 Score 0 04/27/2022 Depression Answer Date Recorded Patient Health Questionnaire-2 Score 0 04/27/2022 Sex and Gender Information Value Date Recorded Sex Assigned at Male 02/01/2022 10:21 AM EDT Legal Sex Male 10:21 AM EDT Gender Identity Male 02/01/2022 10:21 AM EDT Sexual Orientation Straight 02/01/2022 10 :21 AM EDT documented as of this encounter Plan of Treatment Upcoming Encounters Date Type Department Care Team (Late Contact Info) Description 01/08/2025 11:00 AM EDT Office Visit [facility] [address] [place], [place] [phone] Marline, Gladys [address] [place], [place] [phone] 01/21/2025 9:30 AM EDT Medication Management [facility] [address] [place] [address] Melodie Dupont PharmD [address] [place] [address] 03/14/2025 11:30 AM EST Office Visit [facility] [address] [place] [address] Tam Amaya MD [address] [place] [phone] documented as of this encounter Visit Diagnoses Diagnosis Type 2 diabetes mellitus without complication, without long-term current use of insulin ([facility]) documented in this encounter Additional Health Concerns Assessment Noted Time PHQ-9 Depression Total Score: 0 04/27/19 10:42 AM EST documented as of this encounter Care Teams [employer] Structure Assembler Relationship Specialty Start Date End Date Tam Amaya MD [address] [place] [phone] PCP - General Internal Medicine 02/01/14 Melodie Dupont PharmD [address] [place] [phone] Pharmacist Pharmacy 09/27/24 documented as of this encounter
--- OUTSIDE RECORDS SUMMARY | 2024-12-18 14:02 | XMS_ITS | Encounter Summary ---
Author Organization [employer] Address [address] [place] [address] Care Team Providers Care Sugar Refinery Supervisor Name Role Phone Tam Amaya MD Primary Care Provide r Melodie Dupont PharmD Unavailable [phone] Reason for Visit * Reason Onset Date Comments chart prep 12/17/2024 Encounter Details Date Type Department Care Team ([facility] Contact Info) Description 12/17/2024 Telephone [facility] MEDICINE [address] [place], [place] [phone] Tam Amaya MD [address] [place], [place] [phone] chart prep Social History Tobacco Use Types Packs/Day Years [...] the past 12 months, has t he electric, gas, oil or water company threatened to shut off services in your [...] AM EDT documented as of this encounter Miscellaneous Notes * Telephone Encounter - Janae Myers MA - 12/17/2024 12:34 PM EDT Chart Prep Labs: done Images: not applicable Screenings: Colonoscopy , Eye Exam, Foot Exam, and HIV screening Vaccines due: Covid Due, Hep A Due, Hep B Due, PCV20 Due, Flu Due, and Shingles in pharmacy Due Referrals: Completed Overdue care gaps: A1C, Glucose, Sbirt, SDOH, PHQ9, GAD7, Disability , and Oral Health documented in this encounter Plan of Treatment Upcoming Encounters Date Type Department Care Team (Late st Contact Info) Description 01/08/2025 11:00 AM EDT Office Visit [facility] [address] [place], [place] [phone] Gladys Horan [address] [place], [place] [phone] 01/21/2025 9:30 AM EDT Medication Management [facility] MED[facility]INE [address] [place] [address] Melodie Dupont, PharmD [address] [place] [address] 03/14/2025 11:30 AM EST Office Visit [facility] MED[facility]INE [address] [place] [address] Tam Amaya MD [address] [place] [address] documented as of this encounter Goals Goal [...] Magaña PharmD documented as of this encounter Visit Diagnoses Not on filedocumented in this encounter Additional Health Concerns Assessment Noted Time PHQ-9 Depression Total Score: 0 04/27/19 23 10:42 AM EST documented as of this encounter Care Teams Sugar Refinery Supervisor Relationship Specialty Start Date End Date Tam [place] [address] PCP - General Internal Medicine 02/01/14 Melodie Dupont PharmD [address] [place] [phone] Pharmacist Pharmacy 09/27/24 documented as of this encounter
--- OUTSIDE RECORDS SUMMARY | 2024-12-18 14:02 | XMS_ITS | Encounter Summary ---
Author Organization [employer] Address [address] [place] [address] 7t [place] [address] Care Team Providers Care Senior Financial Reporting Analyst Name Role Phone Tam Amaya MD Primary Care Provide r Melodie Dupont PharmD Unavailable [phone] Reason for Visit * Reason Onset Date Comments Med Refill 10/15/2022 Encounter Details Date Type Department Care Team (Late Contact Info) Description 10/15/[address] [facility] MED[facility]INE [address] [place], [place] [phone] Tam Amaya MD [address] [place], [place] [phone] Type 2 diabetes mellitus without complication, without long-term current use of insulin ([facility]) Social History Tobacco Use Types Packs/Day Years [...] Description 01/08/2025 11:00 AM EDT Office Visit [facility] [address] [place], [place] [phone] Marline, Gladys [address] [place], [place] [phone] 01/21/2025 9:30 AM EDT Medication Management [facility] [address] [place] [address] Melodie Dupont PharmD [address] [place] [address] 03/14/2025 11:30 AM EST Office Visit [facility] [address] [place] [address] Tam Amaya MD [address] [place] [phone] documented as of this encounter Visit Diagnoses Diagnosis Type 2 diabetes mellitus without complication, without long-term current use of insulin ([facility]) documented in this encounter Additional Health Concerns Assessment Noted Time PHQ-9 Depression Total Score: 0 04/27/19 10:42 AM EST documented as of this encounter Care Teams Senior Financial Reporting Analyst Relationship Specialty Start Date End Date Tam Amaya MD [address] [place] [phone] PCP - General Internal Medicine 02/01/14 Melodie Dupont PharmD [address] [place] [phone] Pharmacist Pharmacy 09/27/24 documented as of this encounter
--- OUTSIDE RECORDS SUMMARY | 2024-12-18 14:02 | XMS_ITS | Encounter Summary ---
Author Organization [employer] Address [address] [place] [address] 7 [place] [address] Care Team Providers Care Banquet Lead Name Role Phone Tam Amaya MD Primary Care Provide r Melodie Dupont PharmD Unavailable [phone] Reason for Visit * Reason Comments Med Refill Encounter Details Date Type Department Care Team ([facility] Contact Info) Description 08/10/[address] [facility] MED[facility]INE [address] [place] [address] Tam Amaya MD [address] [place] [address] Onychomycosis of great toe Social History Tobacco Use Types Packs/Day Years Used Date Smoking Tobacco: Never Smokeless Tobacco: Never Alcohol Use Standard [...] Upcoming Encounters Date Type Department Care Team ([facility] Contact Info) Description 01/08/2025 11:00 AM EDT Office Visit [facility] DENTAL [address] [place] [address] [phone] Gladys Horan [address] [place] [phone] 01/21/2025 9:30 AM EDT Medication Management [facility] MEDICINE [address] [place] [phone] Melodie Dupont PharmD [address] [place] [phone] 03/14/2025 11:30 AM EST Office Visit [facility] MED[facility]INE [address] [place] [phone] Tam Amaya MD [address] [place] [phone] documented as of this encounter Visit Diagnoses Diagnosis Onychomycosis of great toe documented in this encounter Additional Health Concerns Assessment Noted Time PHQ-9 Depression Total Score: 0 04/27/19 10:42 AM EST documented as of this encounter Care Teams Banquet Lead Relationship Specialty Start Date End Date Tam Amaya MD [address] [place] [phone] PCP - General Internal Medicine 02/01/14 Melodie Dupont PharmD [address] [place] [phone] Pharmacist Pharmacy 09/27/24 documented as of this encounter
--- OUTSIDE RECORDS SUMMARY | 2024-12-18 14:02 | XMS_ITS | Encounter Summary ---
Author Organization [employer] Address [address] [facility] 7t [place] [address] Care Team Providers Care Manhole Stripper Name Role Phone Tam Amaya MD Primary Care Provide r Melodie Dupont PharmD Unavailable [phone] Reason for Visit * Reason Onset Date Comments Referral 12/18/2024 Encounter Details Date Type Department Care Team ([facility] st Contact Info) Description 12/18/2024 Telephone [facility] MEDICINE [address] [place], [place] [phone] Tam Amaya MD [address] [place], [place] [phone] Referral Social History Tobacco Use Types Packs/Day Years [...] AM EDT documented as of this encounter Functional Status * Over the [...] Author Not at all 12/18/2024 10:01 AM [place] Charlotte Diaz [place] * Moving or speaking [...] of Assessment Author 0 12/18/2024 10:01 AM [facility] Charlotte Diaz MA * Over the last 2 weeks, how often have you been bothered by any of the following problems? Question Answer Date of Assessment Author Feeling nervous, anxious, or on edge 0 12/03 10:01 AM EDT Fer Diaz MA Not being able to stop or co ntrol worrying 0 12/18/2024 10:01 AM EDT Fer Diaz M A Worrying too much about diff erent things 0 12/18/2024 10:01 AM [facility] Fer Diaz M A Trouble relaxing 0 12/18/2024 10:01 AM EDT Fer Diaz MA Being so restless that it is hard to sit still 0 12/18/2024 10:01 AM [facility] Fer Diaz M A Becoming easily annoyed or irritable 0 12/03 10:01 AM [facility] Fer Diaz MA Feeling afraid as if somethi ng awful might happen 0 12/18/2024 10:01 AM [facility] Fer Diaz M A AXEL-7 Total Score 0 12/18/2024 10:01 AM Fer Olmstead [place] documented as of this encounter Miscellaneous Notes * Telephone Encounter - Pat Shah RN - 12/18/2024 1:00 PM EDT Images from the original note were not included. From 06/2023 plan of care in cardiology note: Called [facility], spoke with Cheryl. Pt had 3 follow up appts scheduled with cardiology - 1 apptcancelled by [facility], 2 appts cancelled by the pt. At this point the pt can call to reschedule follow up, no new referral needed. * Telephone Encounter - Pat Shah RN - 12/18/2024 12:56 PM EDT ----- Message from Tam Jessica MD sent at 12/18/2024 12:34 PM EDT ----- Pt seen by Cardiology for outpatient stress test and Holter monitor Seen at [facility] they recommended a stress echo. Stress ECHO 08/12/2023: Stress interpretation: Abnormal exercise tolerance test Normal exercise physiology ECG changes suggestive of ischemia ECHO findings: Foreshortened apical views post stress limiting assessment of the true LV apex. LVSF appropriately augmented following stress. There are no definite regional wall motion abnormalities seen following stress on limited views Please contact Cardiology office to find out if patient was lost for follow up. Or if joinery setter out review stress echo and had no concerns documented in this encounter Plan of Treatment Upcoming Encounters Date Type Department Care Team (Late st Contact Info) Description 01/08/2025 11:00 AM EDT Office Visit [facility] [address] [place], [place] [phone] Gladys Horan [address] [place], [place] [phone] 01/21/2025 9:30 AM EDT Medication Management [facility] MEDICINE [address] [place], [place] [phone] Melodie Dupont, RyneD [address] [place], [place] [phone] 03/14/2025 11:30 AM EST Office Visit [facility] MEDICINE [address] [place] [address] Tam Amaya MD [address] [place] [address] documented as of this encounter Goals Goal [...] as of this encounter Visit Diagnoses Diagnosis Mixed hyperlipidemia documented in this encounter Additional Health Concerns Assessment Noted Time PHQ-9 Depression Total Score: 0 12/19/19 10:01 AM EDT documented as of this encounter Care Teams Manhole Stripper Relationship Specialty Start Date End Date [place] [address] PCP - General Internal Medicine 02/01/14 Melodie Dupont PharmD [address] [place] [phone] Pharmacist Pharmacy 09/27/24 documented as of this encounter
--- OUTSIDE RECORDS SUMMARY | 2024-12-18 14:02 | XMS_ITS | Clinical Summary ---
Author Organization [employer] Address [address] [place] [address] [address] [place] [address] Care Team Providers [employer] Sales Executive Name Role Phone Tam Amaya MD Primary Care Provide r Melodie Dupont PharmD Unavailable [phone] Allergies No known active allergies Medications gabapentin (Neurontin) 300 MG capsule take 1 capsule by oral route QHS Active sildenafil (Viagra) 100 MG tabletIndications :Erectile dysfunction, unspecified erectile dysfunction type Take 1 tablet (100 mg) by mouth if needed each day for erectile dysfunction for up to 10 days. 10 tablet 023 Active FREESTYLE LITE test stripIndications: Type 2 diabetes mellitus without complication, without long-term current use of insulin ([facility]) Use as instructed 100 each 12 023 Active FreeStyle lancetsIndication s:Type 2 diabetes mellitus without complication, without long-term current use of insulin ([facility]) 1 each by Other route before breakfast, before lunch, and before evening meal. Use as instructed 100 each 12 023 Active Blood Glucose Monitoring Suppl (FreeStyle Lite) w/Device kitIndications:Ty pe 2 diabetes mellitus without complication, without long-term current use of insulin ([facility]) 1 applicator before breakfast, before lunch, and before evening meal. 1 kit 023 Active aspirin 81 MG EC tabletIndications :Type 2 diabetes mellitus without complication, without long-term current use of insulin ([facility]),Precord ial pain Take 1 tablet (81 mg) by mouth in the morning. 30 tablet 11 023 Active rosuvastatin (Crestor) 10 MG tabletIndications :Mixed hyperlipidemia TAKE 1 TABLET BY MOUTH EVERY EVENING 90 tablet 025 Active dapagliflozin-met FORMIN ER (Xigduo XR) 2.5-1000 MG Take 2 tablets by mouth with breakfast. 60 tablet 11 025 2025 Active amLODIPine (Norvasc) 10 MG tabletIndications :Primary hypertension TAKE 1 TABLET BY MOUTH EVERY EVENING 90 tablet 1 025 Active lisinopril 40 MG tabletIndications :Primary hypertension TAKE 1 TABLET BY MOUTH EVERY MORNING 30 tablet 1 025 Active Dulaglutide (Trulicity) 4.5 MG/0.5ML solution auto-injectorIndi cations:Type 2 diabetes mellitus without complication, without long-term current use of insulin ([facility]) Inject 4.5 mg under the skin 1 (one) time per week. 0.5 mL 3 025 Active lisinopril 40 MG tabletIndications :Primary hypertension TAKE 1 TABLET BY MOUTH EVERY MORNING 90 tablet 025 2024 Discontinued Trulicity 3 MG/0.5ML solution auto-injectorIndi cations:Type 2 diabetes mellitus without complication, without long-term current use of insulin (CMS/HCC) INJECT ONE PEN (= 3MG) SUBCUTANEOUSLY ONCE A WEEK DIRECTED 2 mL 1 025 2024 Discontinued Active Problems Problem Noted Date Diagnosed Date Bilateral hand pain 12/18/2024 Assessment & Plan (12/18/2024 10:22 AM EDT): Plan Plain films both hands Precordial pain 02/15/2023 Assessment & Plan (12/18/2024 12:33 PM EDT): Pt seen by Cardiology for outpatient stress test and Holter monitor Seen at [facility] cardiology they recommended a stress echo. Stress [...] to contact Cardiology office for follow up Assessment & Plan (02/15/2023 8:56 AM EST): Pt here after being seen at [facility] with c/o chest pain and palpitations . Work up in the ER was unrevealing Plan: Given age and risk factors will refer to Cardiology for outpatient stress test and Holter monitor Bunion, right foot 06/22/2022 Assessment & Plan (06/22/2022 11:52 AM EDT): Painful Will refer to Podiatry Onychomycosis of great toe 05/25/2022 Assessment & Plan (05/25/2022 9:38 AM EST): Pt with this on exam Interested in being treated LFT's normal Plan: Start terbinafine once a day Overweight 05/24/2022 Assessment & Plan (05/24/2022 8:32 PM EST): Patient has been counseled and educated about diet and exercise. Personal goal of weight loss discussed Fatty liver 04/27/2022 Assessment & Plan (04/27/2022 8:36 AM EST): Hep B and C serologies negative, and Abd US showed fatty liver Preventative [facility] care 04/27/2022 Overview (02/28/2023): History (updated 02/28/2023) - Declines routine vaccinations at this time - Starting medboxes 03/01/2023. - Takes OTC aspirin 81mg daily. Assessment & Plan (12/18/2024 10:12 AM EDT): Colonoscopy: 06/10/2018 PSA 05/15/2022 Normal, will repeat Assessment & Plan (02/28/2023 1:02 PM EST): Plan: - Start medboxes 03/01/2023. Patient to bring meds in for packaging. - Patient is going on Vacation on 03/23/23 and returning 04/08/2023 and will need medications prepared ahead of time. Medication Administration times as required for starting medboxes Lisinopril - AM Amlodipine - PM Rosuvastatin - PM Glipizie - AMPM Metformin - AMPM Aspirin - OTC AM Trulicity once weekly on saturdays Assessment & Plan (04/27/2022 8:37 AM EST): Colonoscopy: 06/10/2018 Mixed hyperlipidemia 04/26/2022 Assessment & Plan (12/18/2024 10:10 AM EDT): Patient with elevated lipids. Most recent lipid profile Lab Results Component Value Date TRIG 64 09/10/2024 TRIG 127 05/15/2022 CHOL 112 09/10/2024 CHOL 185 05/15/2022 LDLCHOLCAL 66 09/10/2024 LDLCHOLCAL 128 05/15/2022 HDL 34 (L) 09/10/2024 HDL 32 05/15/2022 On Crestor 10 mg po qhs advised to try to adhere to a low cholesterol diet, counseled and educated about diet and exercise, Patient encouraged to come up with a personal goal for weight loss. Assessment & Plan (09/12/2023 11:59 AM EDT): Assessment: Unable to make assessment Plan: - Repeat Lipid panel and LFTs Assessment & Plan (02/28/2023 12:55 PM EST): Assessment: - On high intensity statin as recommended by ADA guidelines in persons with DM and risk for CAD Plan: - Continue with current therapy and monitoring Assessment & Plan (02/15/2023 11:16 AM EST): Patient with elevated lipids. Most recent lipid profile from: 05/15/2022 Component Ref Range & Units 9 mo ago 2 yr ago Triglycerides mg/dL 127 198 High R Comment: Desirable Triglyceride: less than 150 mg/dLBorderline High Triglyceride 150-199 mg/dLHigh Triglyceride: 200-499 mg/dLVery High Triglyceride: greater than or equal to 5OO mg/dL Cholesterol mg/dL 185 Comment: Desirable Cholesterol: less than 200 mg/dLBorderline High Cholesterol: 200-239 mg/dLHigh Cholesterol: greater than 239 mg/dL LDL Cholesterol Calculated mg/dl 128 Comment: Desirable LDL: less than 100 mg/dLNear Optimal/Above Optimal LDL: 110-129 mg/dLBorderline High LDL: 130-159 mg/dLHigh LDL: 160-189 mg/dLVery High LDL: greater than or equal to 190 mg/dL HDL Cholesterol mg/dL 32 30 Low R He was on Atorvastatin 20 mg po at bedtime, but tells me he stopped taking it because he did not like how he felt when he was taking it Most recent LFT'S from: 06/27/2020 showed a GOT of: 26 and a GPT of: 18 Plan: Stop Atorvastatin start Rosuvastatin 10 mg po qhs advised to try to adhere to a low cholesterol diet, counseled and educated about diet and exercise, Patient encouraged to come up with a personal goal for weight loss. Assessment & Plan (04/27/2022 8:33 AM EST): Patient with elevated lipids. Most recent lipid profile from: 06/27/2020 shows a total cholesterol of: 196 triglycerides of: 198 HDL of: 30 and LDL of: 132 Currently on a regimen of: Atorvastatin 20 mg po qhs . Most recent LFT'S from: 06/27/2020 showed a GOT of: 26 and a GPT of: 18 Plan: repeat Lipid profile advised to try to adhere to a low cholesterol diet, counseled and educated about diet and exercise, Patient encouraged to come up with a personal goal for weight loss. 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 Delgado recommended Duloxetine but pt did not tolerate due to decrease Libido Lacunar infarction 11/16/2016 Depressive disorder 01/07/2012 Assessment & Plan (04/27/2022 8:35 AM EST): Pt with a Hx of depression currently doing better denies any SI. Pt was referred to our integrated clinician [facility] for psychotherapy in the past In the past he was on Fluoxetine 20 mg po daily, no longer on it. f/u 3 months Benign hypertension 04/04/1958 Assessment & Plan (12/18/2024 10:08 AM EDT): Patient here for a f/u with Hypertension [...] counseled about weight loss. 4 months f/u Assessment & Plan (09/12/2023 11:53 AM EDT): Assessment: - BP is at goal of less than 140/90 per JNC8 guidelines Plan/ Recommendations: - Repeat BMP - Continue with current therapy. F/U in 1 year Monitoring: Potassium (mmol/L) Date Value 01/29/2023 4.1 05/15/2022 5.0 BP Readings from Last 2 Encounters: 09/12/23 120/80 09/06/23 (!) 172/80 Assessment & Plan (02/28/2023 12:51 PM EST): Assessment: - BP is at goal of less than 140/90 per JNC8 guidelines Plan: - Continue with current therapy and monitoring Assessment & Plan (02/15/2023 8:50 AM EST): Patient here for a f/u with Hypertension currently controlled on a regimen of: Norvasc 10 mg po and Lisinopril 40 mg po daily. Hctz Was Dced due to persistent hyponatremia Most recent electrolytes, Bun and Creatinine done on: 01/29/2023 were wnl. CXRAY done on: 03/28/2012 in the ER showed: cluster of ring opacities in the left lower lung. Chest CT done 04/11/2014 was Normal patient advised to adhere to a low sodium diet, encouraged about medication compliance, counseled about weight loss. 4 months f/u Assessment & Plan (04/27/2022 8:30 AM EST): Patient here for a f/u with Hypertension currently controlled on a regimen of: Norvasc 10 mg po and Lisinopril 40 mg po daily. Hctz Was Dced due to persistent hyponatremia Most recent electrolytes, Bun and Creatinine done on: 06/27/2020 were wnl, Today will repeat CXRAY done on: 03/28/2012 in the ER showed: cluster of ring opacities in the left lower lung. Chest CT done 04/11/2014 was Normal patient advised to adhere to a low sodium diet, encouraged about medication compliance, counseled about weight loss. 4 months f/u Type 2 diabetes mellitus wit hout complication, without long-term current use of insulin 04/04/1958 Assessment & Plan (12/18/2024 12:35 PM EDT): Pt here for a f/u He is in a regimen of: xigduo XR 2.08/999 and Trulicity 3 mcg once a week, Pt denies any Hx of thyroid cancer , or family hx of it, no hx of Pancreatitis either Hgb A1c 12/18/2024 was 8.5 from 7.2 Eye exam done on: 12/27/[address] Cronin (flight service specialist). No Pt was referred to our Eye [...] check your feet on a daily basis. Assessment & Plan (09/12/2023 11:57 AM EDT): Assessment: - At goal of A1c less than 7% or fasting BG between 70-130 mg/dL per ADA guidelines. Plan/ Recommendations: - Continue current therapy - Message to pharmacy to sync GLP1 with medboxes - Repeat A1c Monitoring: Hemoglobin A1c Date Value 03/19/2022 10.5 % 06/27/2020 11.1 % of total Hgb (H) Hemoglobin A1C (%) Date Value 02/15/2023 7.2 (A) 08/24/2022 7.6 (A) LDL Cholesterol (mg/dL (calc)) Date Value 06/27/2020 132 (H) HDL Cholesterol (mg/dL) Date Value 06/27/2020 30 (L) No results found for: B12 Assessment & Plan (02/28/2023 12:58 PM EST): Assessment: - Approaching goal of A1c <7% per ADA guidelines. Plan: - Continue with current therapy and monitoring Assessment & Plan (02/15/2023 11:15 AM EST): Pt here for a f/u He is in a regimen of: Glipizide 10 mg 1 tabs po BID, Metformin 1000 mg po BID and Trulicity 3 mcg once a week, Pt denies any Hx of thyroid cancer , or family hx of it, no hx of Pancreatitis either Hgb A1c 02/15/2023 was 7.2 from 9.4 Down from a previous one of 10.5 Eye exam done on: 12/27/[address] Cronin (flight service specialist). No Pt was referred to our Eye care program in the past Microalbumin checked on: 06/27/2020 was: 9.8 Pt is on an RYAN inhibitor. Foot check risk of zero Previously pt was referred to our diabetes RN, Pt reports compliance with Asa 81 mg po daily Plan: Continue current regimen Follow up in 4 months Pt advised to: adhere to diabetic diet check your blood sugars regularly check your feet on a daily basis. Assessment & Plan (08/24/2022 2:23 PM EDT): Pt here for a f/u Glucometer: AVERAGE 155 He is in a regimen of: Glipizide 10 mg 1 tabs po BID, Metformin 1000 mg po BID and Trulicity 3 mcg once a week, Pt denies any Hx of thyroid cancer , or family hx of it, no hx of Pancreatitis either Hgb A1c 06/22/2022 was 9.4 Down from 10.5 Eye exam done on: 12/27/[address] Cronin (flight service specialist). No DR Pt was referred to our Eye care program in the past Microalbumin checked on: 06/27/2020 was: 9.8 Pt is on an RYAN inhibitor. Foot check risk of zero Previously pt was referred to our diabetes RN, Pt reports compliance with Asa 81 mg po daily Plan: Continue current regimen Follow up in 3 months Pt advised to: adhere to diabetic diet check your blood sugars regularly check your feet on a daily basis. Assessment & Plan (06/22/2022 11:54 AM EDT): Pt here for a f/u Glucometer: 188- 245 He is in a regimen of: Glipizide 10 mg 2 tabs po BID and Metformin 1000 mg po BID and Trulicity 1.5 mcg once a week, Pt denies any Hx of thyroid cancer , or family hx of it, no hx of Pancreatitis either Hgb A1c 06/22/2022 was 9.4 Down from 10.5 Eye exam done on: 12/27/[address] Cronin (flight service specialist). No DR Pt was referred to our Eye care program in the past Microalbumin checked on: 06/27/2020 was: 9.8 Pt is on an RYAN inhibitor. Foot check risk of zero Previously pt was referred to our diabetes RN, Pt reports compliance with Asa 81 mg po daily Plan: Increase Trulicity to 3 mg once a week, Decrease Glipizide to 1 tablet po BID Follow up in 1 month Pt advised to: adhere to diabetic diet check your blood sugars regularly check your feet on a daily basis. Assessment & Plan (05/25/2022 9:34 AM EST): Pt here for a f/u pt did not bring his glucometer He is in a regimen of: Glipizide 10 mg 2 tabs po BID and Metformin 1000 mg po BID and Trulicity 0.75 mcg once a week, Pt denies any Hx of thyroid cancer , or family hx of it, no hx of Pancreatitis either Hgb A1c 03/19/2022 was 10.5 Eye exam done on: 12/27/[address] Cronin (flight service specialist). No DR Pt was referred to our Eye care program in the past Microalbumin checked on: 06/27/2020 was: 9.8 Pt is on an RYAN inhibitor. Foot check risk of zero Previously pt was referred to our diabetes RN, Pt reports compliance with Asa 81 mg po daily Plan: Increase Trulicity to 1.5 mcg once a week. Follow up in 1 month for continue titration Pt advised to: adhere to diabetic diet check your blood sugars regularly check your feet on a daily basis. Assessment & Plan (04/27/2022 10:48 AM EST): Pt here for a f/u after a long hiatus, apparently his vascular surgeon told him that his Hgb A1c needed to be better controlled before he could do surgery pt did not bring his glucometer He is in a regimen of: Glipizide 10 mg 2 tabs po BID and Metformin 1000 mg po BID Hgb A1c 03/19/2022 was 10.5 Eye exam done on: 12/27/[address] Cronin (flight service specialist). No DR Pt was referred to our Eye care program in the past Microalbumin checked on: 06/27/2020 was: 9.8 Pt is on an RYAN inhibitor. Foot check risk of zero Previously pt was referred to our diabetes RN, Pt reports compliance with Asa 81 mg po daily Plan: Start Trulicity 0.75 mcg once a week. Pt denies any Hx of thyroid cancer , or family hx of it, no hx of Pancreatitis either Follow up in 1 month for titration Pt advised to: adhere to diabetic diet check your blood sugars regularly check your feet on a daily basis. Simple varicose veins 04/04/1958 Assessment & Plan (04/27/2022 8:37 AM EST): Under the care of vascular surgeon Dr Caban, who recommended tighter Blood sugar control before he would consider any type of surgical intervention Encounters Date Type Department Care Team Description 12/18/2024 10:00 AM EDT Office Visit [facility] [address] [place] [id number] Tam Amaya MD Type 2 diabetes mellitus without complication, without long-term current use of insulin ([facility]) (Primary Dx); Benign hypertension; Mixed hyperlipidemia; Precordial pain; Preventative health care; Bilateral hand pain 12/18/2024 Telephone [facility] [address] [place] [address] Tam Amaya MD Referral 12/18/2024 Travel 12/17/2024 Telephone [facility] [address] [facility] [place] [address] Tam Amaya MD chart prep 12/13/2024 Refill [facility] [address] [place] [address] Tam Amaya MD Primary hypertension 11/14/2024 Refill [facility] [address] [place] [address] Tam Amaya MD Type 2 diabetes mellitus without complication, without long-term current use of insulin ([facility]) 10/24/2024 Refill [facility] [address] [place] [address] Tam Amaya MD Primary hypertension 09/27/2024 Travel 09/26/2024 Travel 09/26/2024 Refill [facility] [address] [place] [address] Tam Amaya MD Mixed hyperlipidemia; Primary hypertension from Last 3 Months Immunizations Immunization Administration Dates Next Due Influenza injectable quadrivalent preservative f ree 03/18/2015 Influenza, IIV3, injectable 03/19/2014 Moderna Covid-19 Vaccine 12+ 12/26/2020,11/29/19 21 Pneumococcal Polysaccharide PPSV23 04/13/2011 Tdap 03/18/2015 Social History Tobacco Use Types Packs/Day Years Used Date Smoking Tobacco: Never Passive Smoke Exposure: Never Smokeless Tobacco: Never Tobacco Cessation:Counseling Given: Not Answered Alcohol Use Standard Drinks/Week Comments Not Currently [...] Orientation Straight 02/01/2022 10 :21 AM EDT Last Filed Vital Signs Vital Sign Reading Time Taken Comments Blood Pressure 138/84 12/18/2024 10:20 AM EDT Pulse 72 12/18/2024 9:56 AM EDT Temperature 36.9 C (98.4 F) 12/18/2024 9:56 AM EDT Respiratory Rate 17 12/18/2024 9:56 AM EDT Oxygen Saturation 98% 05/03/2023 6:59 PM EST Inhaled Oxygen Concentration - - Weight 75.9 kg (167 lb 6 oz) 12/18/2024 9:56 AM EDT Height 170.2 cm (5' 7 ) 12/18/2024 9:56 AM EDT Body Mass Index 26.21 12/18/2024 9:56 AM EDT Plan of Treatment Upcoming Encounters Date Type Department Care Team (Late st Contact Info) Description 01/08/2025 11:00 AM EDT Office Visit [facility] [address] [place] [phone] Gladys Horan [address] [place] [address] 01/21/2025 9:30 AM EDT Medication Management [facility] [address] [place] [address] [id number] Melodie Dupont, RyneD [address] [place], [place] [phone] 03/14/2025 11:30 AM EST Office Visit [facility] [address] [place], [place] [phone] Tam Amaya MD [address] [place], [place] [phone] Health Maintenance Due Date Last Done Comments CT Colonography 1966 FIT DNA/Cologuard 1966 FIT 1966 FOBT 1965 HIV Screening 1965 Sigmoidoscopy 1966 Diabetes: Foot Exam 1976 Eye Exam 1976 Hepatitis C Screening 1984 Hepatitis A Vaccines (1 of 2 - Risk 2-dose series) 1985 Hepatitis B Vaccines (1 of 3 - 19+ 3-dose series) 1985 Pneumococcal Vaccine: 50+ Years (2 of 2 - PCV) 04/13/2012 04/13/2011 Dental X-Ray: Full Mouth 02/03/2014 02/02/2011 Zoster Vaccines (1 of 2) 2016 Colonoscopy 06/10/2022 06/10/2017 Colorectal Cancer Screening 06/10/2022 Diabetes: Urine Protein Screening 05/15/2023 05/15/2022, 06/27/2020 SDOH Screening 08/25/2023 08/24/2022 Dental Oral Exam 03/08/2024 09/06/2023, , 04/22/2016, Additional history exists Dental X-Ray: Bitewings 09/06/2024 09/06/19 24, 06/15/2019, 04/28/2017, Additional history exists Dental Prophylaxis 09/14/2024 03/15/2024, 0 09/06/2023, 04/28/2017, Additional history exists COVID-19 Vaccine ( season) 2024 12/26/2020, 11/28/2020 Influenza Vaccine (#1) 2024 03/18/2015, 2013 DTaP/Tdap/Td Vaccines (2 - Td or Tdap) 03/18/2025 03/18/2015 Diabetes: Hemoglobin A1C 03/19/2025 025, 09/10/2024, 02/15/2023, Additional history exists Lipid Panel 09/10/2025 09/10/2024, 05/05, 06/27/2020 Alcohol/Substance Use Screening 12/18/2025 12/18/2024 Depression Screening 12/18/2025 12/18/2024, 12/19/19 25 Disability Screening 12/18/2025 12/18/2024 Tobacco Screening 12/18/2025 12/18/2024 RSV Patients and Patients Aged 60 years or older (1 - 1-dose 75+ series) 2041 HIB Vaccines Aged Out No longer eligi ble based on patient's age to complete this topic HPV Vaccines Aged Out No longer eligi ble based on patient's age to complete this topic IPV Vaccines Aged Out No longer eligi ble based on patient's age to complete this topic Meningococcal B Vaccine Aged Out No l onger eligible based on patient's age to complete this topic Meningococcal Vaccine Aged Out No mariann tee eligible based on patient's age to complete this topic RSV under 20 months Aged Out No longe r eligible based on patient's age to complete this topic Rotavirus Vaccines Aged Out No longer eligible based on patient's age to complete this topic Goals Goal Patient Goal Type Associated Problems [...] Component Mixed hyperlipidemia No Elizabeth Magaña PharmD Procedures Procedure Name Priority Date/Time Associated Diagnosis Comments XR HAND 3+ VIEWS BILATERAL Routine 12/18/2024 12:16 PM EDT POCT GLYCATED HEMOGLOBIN, TOTAL Routine 12/18/2024 10:00 AM EDT Type 2 diabetes mellitus without complication, without long-term current use of insulin ([facility]) POCT GLUCOSE Routine 12/18/2024 9:58 AM EDT Type 2 diabetes mellitus without complication, without long-term current use of insulin ([facility]) LIPID PANEL, STANDARD Routine 09/10/2024 9:08 AM EDT Type 2 diabetes mellitus without complication, without long-term current use of insulin ([facility]) PROPHYLAXIS - ADULT Routine 03/15/2024 8 :00 AM EST BITEWINGS - 4 RADIOGRAPHIC IMAGES Routine 09/06/2023 9:00 AM EDT PERIODIC ORAL EVALUATION - ESTABLISHED PATIENT Routine 09/06/2023 9:00 AM EDT ALBUMIN, RANDOM URINE W/CREATININE Routine 05/15/2022 8:00 AM EST HM COLONOSCOPY Routine 06/10/2017 INTRAORAL - COMPLETE SERIES OF RADIOGRAPHIC IMAGES Routine 02/02/2011 12:00 AM EDT from Last 3 Months or Most Recently Relevant to Health Maintenance Results * XR Hand 3+Views Bilateral (12/18/2024 12:16 PM EDT) Anatomical Region Laterality Modality Upper Extremities, Hand [facility] 12/18/2024 12:1 6 PM EDT Narrative 12/18/2024 12:33 PM EDT [address] [address] XRay Report Signed Patient: Wayne Clements MR#: [id number] 08 : 1965 Acct:[id number] Age/Sex: 59 / M ADM Date: 12/18/24 Loc: .[facility] Attending Dr: Tam Soto MD Ordering Physician: Tam Soto MD Date of Service: 12/18/24 Procedure(s): XR Hand Bilat min 3v Accession Number(s): [id number] cc: Tam Soto MD Reason for Exam: [...] 12/18/24 1230 DD/ 1216 TD/TT: 12/18/24 1219 Premium Card Cancellation Clerk: Procedure Note Donotuseinterpreter, Image - 12/18/[address] [address] XRay Report Signed Patient: Meg Clements#: [id number] 08 : 1965Acct:[id number] Age/Sex: 59 / MADM Date: 12/18/24 Loc: HO.[facility] Attending Dr: Tam Soto MD Ordering Physician: Tam Soto MD Date of Service: 12/18/24 Procedure(s): XR Hand Bilat min 3v Accession Number(s): [id number] cc: Tam Soto MD Reason for Exam: [...] 12/18/24 1230 DD/ 1216 TD/TT: 12/18/24 1219 Premium Card Cancellation Clerk: Tam Jessica MD IMG XR PROCEDURES Alan angela Result - Final * (ABNORMAL) POCT Hgb A1c (12/18/2024 10:00 AM EDT) Hemoglobin A1C 8.1(A) 4.0 - 5.7 % QC Media Lot # [id number] Lot# Expiration Date ,544,473 Blood 12/18/2024 10:0 0 AM EDT Tam Jessica MD POINT OF CARE TEST EN TER/EDIT ORDERABLES Final Result * POCT Glucose (12/18/2024 9:58 AM EDT) Glucose Blood, POC 168 60 - 200 mg/dL Comment:Random [employer] Media Lot # [id number] Lot# Expiration Date ,860,301 Blood Capillary blood specimen / Unknown 12/18/2024 9:58 AM EDT Tam Jessica MD POINT OF CARE TEST EN TER/EDIT ORDERABLES Final Result * (ABNORMAL) Lipid Panel, Standard (09/10/2024 9:08 AM EDT) Triglycerides 64 <150 mg/dL [facility] Comment:Desirable Triglyceri de: less than 150 mg/dLBorderline High Triglyceride 150-199 mg/dLHigh Triglyceride: 200-499 mg/dLVery High Triglyceride: greater than or equal to 5OO mg/dL Cholesterol 112 <200 mg/dL [facility] Comment:Desirable Cholestero l: less than 200 mg/dLBorderline High Cholesterol: 200-239 mg/dLHigh Cholesterol: greater than 239 mg/dL LDL Cholesterol Calculated 66 <100 mg/dL [facility] Comment:Desirable LDL: less than 100 mg/dLNear Optimal/Above Optimal LDL: 110- 129 mg/dLBorderline High LDL: 130-159 mg/dLHigh LDL: 160-189 mg/dLVery High LDL: greater than or equal to 190 mg/dL HDL Cholesterol 34(L) >40 mg/dL [facility] Comment:Desirable HDL: great er than 40 mg/dL Note: This HDL assay may give artificially low results in patients with liver disease. 09/10/2024 9:08 AM EDT 09/10/2024 9:08 AM EDT Tam Jessica MD LAB BLOOD ORDERABLES Final Result [facility] [address] [place] [address] [phone] * Albumin, Random Urine W/Creatinine (05/15/2022 8:00 AM EST) Creatinine, Urine 88.47 mg/dL [facility] Microalbumin Urine 76.0 mg/L [facility] Microalbum Creatinine Ratio Ur 85.9 ug/mg cr [facility] Comment:Albumin/Creatinine R atio Reference Ranges: Normal: < 30 ug/mg creatinine Microalbuminuria: 30 - 300 ug/mg creatinineClinical Albuminuria: > 300 ug/mg creatinine 05/15/2022 8:00 AM EST 05/15/2022 8:21 AM EST [facility] External Provider LAB URI NE ORDERABLES Final Result [facility] [address] [place] [phone] * Hm Colonoscopy (06/10/2017) Colonoscopy Normal Normal 06/10/2017 Narrative Anabel Yost - 06/10/2017 3:45 PM EST Recommended 10 year follow up ( see scanned report) Historical Provider HEALTH MAINTENANCE Edited Result - Final from Last 3 Months or Most Recently Relevant to Health Maintenance Insurance [facility] PPO [facility] Care Teams Solutions Sales Executive Relationship Specialty Start Date End Date Tam Amaya MD [address] [place] [address] PCP - General Internal Medicine 02/01/14 Melodie Dupont PharmD [address] [place] [address] Pharmacist Pharmacy 09/27/24
--- OUTSIDE RECORDS SUMMARY | 2024-12-18 14:02 | XMS_ITS | Encounter Summary ---
Author Organization [employer] Address [address] [facility] 7t [place] [address] Care Team Providers Care Design Project Manager Name Role Phone Tam Amaya MD Primary Care Provide r Melodie Dupont PharmD Unavailable [phone] Reason for Visit * Reason Comments Med Refill Encounter Details Date Type Department Care Team ([facility] st Contact Info) Description 12/13/2024 Refill [facility] [address] [place], [place] [phone] Tam Amaya MD [address] [place], [place] [phone] Primary hypertension Social History Tobacco Use Types Packs/Day Years Used Date Smoking Tobacco: Never Passive Smoke Exposure: Never Smokeless Tobacco: Never Alcohol Use Standard Drinks/Week Comments Not Currently 0 (1 standard drink = 0.6 oz pur e alcohol) Depression Answer Date Recorded Patient Health Questionnaire-9 Score 0 04/27/2022 Housing Stability Answer Date Recorded What is your housing situation today? I have nelson mariscal 01/27/[address] you li ve. Do you have problems with any of the following? None of the above 01/27/2023 Food Insecurity Answer Date Recorded Within the past 12 months, y ou worried that your food would run out before you got money to buy more: Never True 01/27/2023 Within the past 12 months,th e food you bought just didn't last and you didn't have enough money to get more: Never True Transportation Answer Date Recorded In the past 12 months, has l ack of transportation kept you from medical appts, meetings, work or from getting things needed for daily living? No 01/27/2023 Utilities Answer Date Recorded In the past [...] Description 01/08/2025 11:00 AM EDT Office Visit [facility] [address] [place] [address] [phone] Gladys Horan [address] [place], [place] [phone] 01/21/2025 9:30 AM EDT Medication Management [facility] [address] [place] [phone] Melodie Dupont PharmD [address] [place] [address] [phone] 03/14/2025 11:30 AM EST Office Visit [address] [phone] Tam Amaya MD [address] [place] [phone] documented as of this encounter Goals Goal [...] 100 Result Component Mixed hyperlipidemia No Elizabeth Magaña, PharmD documented as of this encounter Visit Diagnoses Diagnosis Primary hypertension Unspecified essential hypertension documented in this encounter Additional Health Concerns Assessment Noted Time PHQ-9 Depression Total Score: 0 04/27/19 23 10:42 AM EST documented as of this encounter Care Teams Design Project Manager Relationship Specialty Start Date End Date Tam Amaya MD [address] [place] [address] PCP - General Internal Medicine 02/01/14 Melodie Dupont, PharmD [address] [place] [address] Pharmacist Pharmacy 09/27/24 documented as of this encounter
--- OUTSIDE RECORDS SUMMARY | 2024-12-18 14:02 | XMS_ITS | Encounter Summary ---
Author Organization [employer] Address [address] [place] [address] 7t [place] [address] Care Team Providers Care Otorhinolaryngologist Name Role Phone Tam Amaya MD Primary Care Provide r Melodie Dupont PharmD Unavailable [phone] Reason for Visit * Reason Comments Med Refill Encounter Details Date Type Department Care Team ([facility] st Contact Info) Description 07/09/2022 Refill [facility] MEDICINE [address] [place] [address] Tam Amaya MD [address] [place] [address] Type 2 diabetes mellitus without complication, without long-term current use of insulin ([facility]) Social History Tobacco Use Types Packs/Day [...] Orientation Straight 02/01/2022 10 :21 AM EDT COVID-19 Exposure Response Date Recorded In the last 10 days, have yo u been in contact with someone who was confirmed or suspected to have Coronavirus/COVID-19? No / Unsure 06/22/2022 11:12 AM EDT documented as of this encounter Plan of Treatment Upcoming Encounters Date Type Department Care Team (Late st Contact Info) Description 01/08/2025 11:00 AM EDT Office Visit [facility] [address] [place], [place] [phone] Marline, Gladys [address] [place], [place] [phone] 01/21/2025 9:30 AM EDT Medication Management [facility] MEDICINE [address] [place] [address] Melodie Dupont PharmD [address] [place] [address] 03/14/2025 11:30 AM EST Office Visit [facility] [address] [place] [address] Tam Amaya MD [address] [place] [phone] documented as of this encounter Visit Diagnoses Diagnosis Type 2 diabetes mellitus without complication, without long-term current use of insulin ([facility]) documented in this encounter Additional Health Concerns Assessment Noted Time PHQ-9 Depression Total Score: 0 04/27/19 23 10:42 AM EST documented as of this encounter Care Teams Otorhinolaryngologist Relationship Specialty Start Date End Date Tam Amaya MD [address] [place] [phone] PCP - General Internal Medicine 02/01/14 Melodie Dupont, RyneD [address] [place] [address] [phone] Pharmacist Pharmacy 09/27/24 documented as of this encounter
--- OUTSIDE RECORDS SUMMARY | 2024-12-18 14:02 | XMS_ITS | Encounter Summary ---
Author Organization [employer] Address [address] [place] [address] 7t [place] [address] Care Team Providers Care Quality Rn Name Role Phone Tam Amaya MD Primary Care Provide r Melodie Dupont PharmD Unavailable [phone] Encounter Details Date Type Department Care Team (Late st Contact Info) Description 04/07/2022 Orders Only [facility] [address] [place] [address] Shanta Lee LPN Social History Tobacco Use Types Packs/Day Years Used Date Smoking Tobacco: Never Assessed Sex and Gender Information Value Date Recorded Sex Assigned at Male 02/01/2022 10:21 AM EDT Legal Sex Male 10:21 AM EDT Gender Identity Male 02/01/2022 10:21 AM EDT Sexual Orientation Straight 02/01/2022 10 :21 AM EDT documented as of this encounter Plan of Treatment Upcoming Encounters Date Type Department Care Team (Late Contact Info) Description 01/08/2025 11:00 AM EDT Office Visit [facility] [address] [place], [place] [phone] Gladys Horan [address] [place], [place] [phone] 01/21/2025 9:30 AM EDT Medication Management [facility] MEDICINE [address] [place], [place] [phone] Melodie Dupont, PharmD [address] [place], [place] [phone] 03/14/2025 11:30 AM EST Office Visit [facility] [address] [place] [address] Tam Amaya MD [address] [place] [address] documented as of this encounter Visit Diagnoses Not on filedocumented in this encounter Care Teams Quality Rn Relationship Specialty Start Date End Date [place] [address] PCP - General Internal Medicine 02/01/14 Melodie Dupont, Sandrine [address] [place] [phone] Pharmacist Pharmacy 09/27/24 documented as of this encounter
--- OUTSIDE RECORDS SUMMARY | 2024-12-18 14:02 | XMS_ITS | Encounter Summary ---
Author Organization [employer] Address [address] [place] [address] 7t [place] [address] Care Team Providers Care Agency Director Name Role Phone Tam Amaay MD Primary Care Provide r Melodie Dupont PharmD Unavailable [phone] Encounter Details Date Type Department Care Team ([facility] Contact Info) Description 08/05/2022 Abstract [facility] MEDICINE [address] [place], [place] [phone] Tam Amaya MD [address] [place] [address] Social History Tobacco Use Types Packs/Day Years [...] Description 01/08/2025 11:00 AM EDT Office Visit [facility] [address] [place] [phone] Gladys Horan [address] [place] [address] 01/21/2025 9:30 AM EDT Medication Management [facility] [place] [phone] [place]odie [place] [address] 03/14/2025 11:30 AM EST Office Visit [facility] [place] [address] [place] [address] documented as of this encounter Procedures Procedure Name Priority Date/Time Associated Diagnosis Comments COLONOSCOPY Routine 06/10/2017 documented in this encounter Results * Colonoscopy (06/10/2017) Colonoscopy Normal Normal 06/10/2017 Narrative Ritika Anabel - 06/10/2017 3:45 PM EST Recommended 10 year follow up ( see scanned report) us Historical Provider HEALTH MAINTENANCE Edited Result - Final documented in this encounter Visit Diagnoses Not on filedocumented in this encounter Additional Health Concerns Assessment Noted Time PHQ-9 Depression Total Score: 0 04/27/19 23 10:42 AM EST documented as of this encounter Care Teams Agency Director Relationship Specialty Start Date End Date [place] [address] PCP - General Internal Medicine 02/01/14 Melodie Dupont PharmD [address] [place] [phone] Pharmacist Pharmacy 09/27/24 documented as of this encounter
--- OUTSIDE RECORDS SUMMARY | 2024-12-18 14:02 | XMS_ITS | Encounter Summary ---
Author Organization [employer] Address [address] [facility] [address] [facility] [address] 7t [place] [address] Care Team Providers Care Department Head Name Role Phone Tam Amaya MD Primary Care Provide r Melodie Dupont PharmD Unavailable [phone] Encounter Details Date Type Department Care Team (Latest Contact Info) Description 12/18/2024 Travel Social History Tobacco Use Types Packs/Day Years [...] is your housing situation today? I have nelsontracy mariscal 12/18/[address] you [...] [place] documented as of this encounter Plan of Treatment Upcoming Encounters Date Type Department Care Team (Late st Contact Info) Description 01/08/2025 11:00 AM EDT Office Visit [facility] [address] [place] [phone] Gladys Horan [address] [place] [address] 01/21/2025 9:30 AM EDT Medication Management [facility] [address] [facility] [place] [address] Melodie Dupont PharmD [address] [place] [address] 03/14/2025 11:30 AM EST Office Visit [facility] [place] [address] Tam Amaya MD [address] [facility] [place] [address] documented as of this encounter Goals Goal [...] documented as of this encounter Care Teams Department Head Relationship Specialty Start Date End Date Tam Amaya MD [facility] [place] [address] PCP - General Internal Medicine 02/01/14 Melodie Dupont PharmD [facility] [place] [address] Pharmacist Pharmacy 09/27/24 documented as of this encounter
--- OUTSIDE RECORDS SUMMARY | 2024-12-18 14:02 | XMS_ITS | Encounter Summary ---
Author Organization [employer] Address [address] [facility] 7t [place] [address] Care Team Providers Care Automation Qa Analyst Name Role Phone Tam Amaya MD Primary Care Provide r Melodie Dupont PharmD Unavailable [phone] Reason for Visit * Reason Comments Med Refill Encounter Details Date Type Department Care Team ([facility] st Contact Info) Description 05/05/2023 Refill [facility] [address] [place], [place] [phone] Tam Amaya MD [address] [place], [place] [phone] Primary hypertension Social History Tobacco Use Types [...] 11:00 AM EDT Office Visit [facility] DENTAL [address] [place] [address] [phone] Gladys Horan [address] [place], [place] [phone] 01/21/2025 9:30 AM EDT Medication Management [facility] MED[facility]INE [address] [place] [phone] Melodie Dupont PharmD [address] [place] [address] [phone] 03/14/2025 11:30 AM EST Office Visit [address] [phone] Tam Amaya MD [address] [place] [phone] documented as of this encounter Goals Goal [...] documented as of this encounter Care Teams Automation Qa Analyst Relationship Specialty Start Date End Date Tam Amaya MD [address] [place] [address] PCP - General Internal Medicine 02/01/14 Melodie Dupont, PharmD [address] [place] [address] Pharmacist Pharmacy 09/27/24 documented as of this encounter
[2024-12-18 14:31] LABS: Microalbum/Creatinine Ratio Ur 249.6 ug/mg cr (<30)
== END 2024-12-18 10:36 | disposition home or self-care (01) ==
LOC: HO.HHCL 10:35
PROVIDERS: PCP Internal Medicine; Visit Provider Internal Medicine
DX: Z00.00 Encounter for general adult medical examination without abnormal findings (principal); M79.641 Pain in right hand; M79.642 Pain in left hand; Z12.5 Encounter for screening for malignant neoplasm of prostate
CPT/HCPCS: 36415; 73130; 82043; 82570; 84153

== ENCOUNTER → 2024-12-18 10:56 | Outpatient (BNV) | payer OTHER, SELFPAY | PROVIDERS: PCP Internal Medicine; Visit Provider Radiology Diagnostic Radiology | DX: M79.641 Pain in right hand (principal); M79.642 Pain in left hand | CPT/HCPCS: 73130 ==